=== PATIENT | female | born 1955 | race Caucasian/White ===

== ENCOUNTER 2022-02-09 18:08 | Inpatient (IN) | payer MEDICARE ==
[~2022-02-09] VITALS: Ht 157.5 cm; Wt 101.5 kg
[2022-02-09] MEDS ORDERED: LIPITOR40 MG PO (18:31)
[2022-02-09] MEDS ORDERED: ZETIA10 MG PO (18:32)
[2022-02-09] MEDS ORDERED: GABAPENTIN100 MG PO (18:32)
[2022-02-09] MEDS ORDERED: KEPPRA750 MG PO (18:33)
[2022-02-09] MEDS ORDERED: DILANTIN100 MG PO (18:34)
--- NOTE | 2022-02-10 00:37 | NUR ---
NOTIFIED DR CHAPA THAT PT NEEDS TO HAVE HER SEIZURE MEDICATION ORDERED, SHE TAKES NIGHTLY. DR WILL ORDER IV SEIZURE MEDICATIONS.
--- NOTE | 2022-02-10 00:50 | NUR ---
pt ARRIVES TO [place] FLOOR, ORIENTED TO SELF, MONTH OF BIRTHDAY ONLY. AT BEDSIDE, ASSISTING WITH ANSWERING QUESTIONS. STATES SHE IS NORMALLY CONFUSED BY DATE, USUALLY KNOWS BIRTHDAY. REORIENTED TO LOCATION, TIME, DATE. PURWICK CATHETER PLACED, INCONTINENCE NOTED IN ATTENDS. BLANCHABLE REDNESS ON TIFFANY AREA, BUTTOCKS. DENIES PAIN. IV SITE FLUSHED, PAINFUL, INFILTRATED. THREE ATTEMPTS AT NEW IV START BY THIS RN AND BUNNY ROWLAND. CERTIFIED VETERINARY TECHNICIAN RN NOTIFIED.
--- NOTE | 2022-02-10 01:35 | NUR ---
pt ASSESSMENT COMPLETE. ACTIVE BOWEL TONES THROUGHOUT ABDOMEN. ABDOMEN DISTENDEND, NON-TENDER WITH PALPATION. FBC RN IN ROOM, 1 ATTEMPT AT IV START, NO SUCCESS. NET WEB APPLICATION DEVELOPER RN IN ROOM TO ATTEMPT NEW IV START.
--- NOTE | 2022-02-10 01:56 | NUR ---
IV ATTEMPTS X 3 UNSUCCESSFUL
--- NOTE | 2022-02-10 02:30 | NUR ---
IV STARTED IN RIGHT WRIST BY IN CLASS SPECIAL EDUCATION TEACHER SENAIT. pt TOLERATED WELL. NGT PLACED PER ER ORDERS, TELEPHONE ORDER, DIFFICULT PLACEMENT. PLACED BY BUNNY ROWLAND. AUSCULTATION OF INJECTED AIR IN STOMACH WNL. NO IMMEDIATE GI SUBSTANCE RETURN. CHEST XRAY ORDERED FOR PLACEMENT VERIFICATION. IV SITE FLUSHED WNL, IV ANTIBIOTIC INFUSING ORDERED AT THIS TIME. PARACHUTE LINE TIER BUNNY KOHLER ORDERED SEIZURE MEDICATIONS.
--- NOTE | 2022-02-10 04:16 | NUR ---
IV ANTIBIOTIC COMPLETE. IV SEIZURE MEDICATIONS ADMINISTERED, INFUSING WNL. pt ASKING QUESTIONS REGARDING NGT, PLAN OF CARE. MYRA MARTINEZ FROM NGT. ADVANCED 4 CM PER XRAY. pt HAS CALL LIGHT IN REACH. NO REQUESTS AT THIS TIME.
--- NOTE | 2022-02-10 06:38 | NUR ---
IN pt ROOM FOR IV ANTIBIOTIC ADMINISTRATION. pt AWAKENS TO VOICE. IV ANTIBIOTIC INFUSING WNL. INCONTINENT OF URINE. ATTENDS CHANGED. PUREWICK IN PLACE. ASSISTED TO REPOSITION TO LEFT SIDE, PILLOW UNDER LEGS. NGT TO LOW INT SUCTION, BROWN DRAINAGE. MINIMAL OUTPUT NOTED IN COLOSTOMY BAG. CALL LIGHT IN REACH. BED IN LOW POSITION.
--- NOTE | 2022-02-10 08:00 | NUR ---
Pt lives in [facility] and is established with PCP and pharmacy. She is unable to remember providers name. Pt visiting friends in [place] and became ill. Pt is a complex case with SBO, ostomy, UTI with colonized stent, and a open wound from gallbladder drain some time ago. Pt is pleasantly confused and frequently attempting to remove her NG, she is unable to remember if she is in [place] and [place] and repeatedly states she has moved here. She is confused and then will state, no I live in [place]. is out of room and pt states he has gone to get their grandchilrend who are 8,9, and 10. She states she has lost 170 # as she needed surgery, she cannot remember what surgery. She states with covid her surgery has been cancelled. Pt plans on returning home to [place] for follow up. I expressed my concern for this as it is at least a [address] Will speak with spouse when he arrives. Will follow up with Dr. Stephens when he has further infor. He has contact ed Dr. Sims for consult.
--- NOTE | 2022-02-10 08:30 | NUR ---
PT ATTEMPTING TO PULL OUT NG TUBE SEVERAL TIMES. MUST CONTINUE TO REINFORCE NEED TO LEAVE IN PLACE. DR CHAUDHARY HAS EXPLAINED TO PT THAT DUE TO MULTIPLE COMORBIDITIES, POSSIBLE TRANSFER TO HIGHER LEVEL OF CARE MAY BE INDICATED. MAGUE DISASTER DIRECTOR ATTEMPTING TO RETRIEVE RECORDS FROM HOSPITAL ADMISSIONS IN [place] WHERE PT RESIDES. IS ALSO INITIATING INQUIRIES TO [facility] FOR TRANSFER. PT'S HAS GONE TO SEE FAMILY AT THEIR HOTEL THIS AM, BUT WILL BE BACK TO SIT WITH PT SHORTLY. WILL CONTINUE TO MONITOR PT CLOSELY SO SHE DOESN'T PULL OUT NG TUBE.
--- NOTE | 2022-02-10 08:54 | NUR ---
TRANSFER REQUEST TO [facility], PATIENT IS ON WAITLIST. [facility] IS ON DIVERT. THIS PATIENT HAS NOT BEEN SEEN AT [facility], I REQUESTED RECORDS SINCE THE WAS SURE THIS WAS THE HOSPITAL. HER PRIMARY CARE DOCTOR IS RACHEAL DEMPSEY IN [place], [place] PHONE . I WILL CALL HER TO GET MOST RECENT VISIT NOTES.
--- NOTE | 2022-02-10 09:49 | CONS ---
[facility] [address], [place] [address] Signed DATE OF CONSULTATION: CHIEF COMPLAINT: Left lower quadrant abdominal pain. HISTORY OF PRESENT ILLNESS: Heide is a 66-year-old female, who apparently weighed 400 pounds at one time. Her describes a rather significant umbilical hernia. They live in [place]. She went to [facility], who evaluated the hernia very carefully. There was concern about loss of abdominal domain. They told her they would not repair the hernia until she lost weight. She ended up at [facility] in [place], [place] back in 2018. The bowel inside the umbilical hernia had become ischemic. The surgeon had to give her a left lower quadrant colostomy at that time. Also the gallbladder apparently was bothering her and she had a drain placed at the same time. Later that drain was removed and yet the tract has never stopped draining, so she has a colostomy bag over that drain site. I am not sure if the original umbilical hernia was closed primarily. She certainly has a recurrent hernia and/or a parastomal hernia at this point. It is actually fairly large. Apparently, she has lost about 175 pounds. She is down to 102 kg. She actually maybe more than that. Later in August 2019, she had to have a left ureteral stent placed for what looks like kidney stones. This was done at [facility] also in [place], [place]. COVID and that ureteral stent is still in place. For reasons that are not clear, someone gave her antibiotics recently in the hospital for urinary tract infection but that ureteral stent has been left in place and never changed. She happens to live with her who is very helpful. She has also had a brain tumor removed, so she does have a history of seizures and she is a little confused at her baseline. They have come up from [place] to visit family. She noticed increasing pain in the left lower quadrant. They finally came to emergency room for evaluation. White count was initially 12, but it is down to 7.7. She is mildly anemic. Hemoglobin A1c is good at 5.2 from her weight loss. Renal function off just a little bit. Of course, her urine is dirty with bacteria. Urine culture is pending. Albumin is low at 2.5. She underwent a CT scan of abdomen and pelvis and her common bile duct is unremarkable. The liver is unremarkable, but I can see the chronic track from her gallbladder up to the abdominal wall. There is clearly a left ureteral stent and probable cholelithiasis. She has some stones still in her kidneys. She clearly has the left lower quadrant parastomal hernia with what appears to be a small bowel obstruction. Her bladder is chronically thickened as well as the left renal pelvis. The left kidney is atrophic and I suspect that is chronic from obstruction in the past. Unfortunately, none of this complexity was relayed to me in the middle of the night by our ER physician. I had been asked to admit her as a general surgeon on-call. She was started on Levaquin and Flagyl last night. It took several hours to start peripheral IV. The tells me she had a PICC line a few weeks ago while in [place]. Also because of her baseline confusion, she is pulling at her NG tube. It was also difficult to place an NG tube but it was confirmed in the stomach by x-ray. Not much out in the way of bilious fluid at this point. The relayed all this complexity to me this Electronically Signed By: FRANCISCO STEPHENS MD 02/10/22 0949 PATIENT NAME: HEIDE KAY CONSULTATION DATE OF : 55 REPORT #: [id number] PHYSICIAN: FRANCISCO STEPHENS MD PCP: NO PRIMARY CARE PHYSICIAN REPORT IS CONFIDENTIAL AND NOT TO BE RELEASED WITHOUT AUTHORIZATION [facility] [address], [place] [address] Signed morning. They are really hoping that they can get her to somewhat stable and they can head back down to [place] to be around her family and the hospitals and physicians that they are familiar with. PAST MEDICAL HISTORY: Urinary tract infection with a chronic left ureteral stent placed in August 2019. She has kidney stones, cholelithiasis, parastomal hernia, brain tumor with seizures and stage I sacral pressure injury and diverticulosis. PAST SURGICAL HISTORY: Includes the incarcerated umbilical hernia with ischemic bowel requiring resection and colostomy in 2019 at [facility] in [place], [place]. She had the gallbladder drain placed at [facility] in [place], [place] in 2019. That has since been removed. She had a brain tumor removed. She has the left ureteral stent in August 2019 apparently at [facility] in [place]. SOCIAL HISTORY: She does not smoke. She has an occasional alcoholic drink. They live in [place], [place]. Her is Gab at [phone]. We did not obtain the name of the primary care provider. They apparently have [facility] near their home. FAMILY HISTORY: None. REVIEW OF SYSTEMS: She had 10 systems reviewed and that is relayed in the history of present illness. ALLERGIES: Sulfa, tazobactam, and Zosyn. MEDICATIONS: 1. Atorvastatin. 2. Zetia. 3. Gabapentin. 4. Keppra. 5. Phenytoin. PHYSICAL EXAMINATION: VITAL SIGNS: Blood pressure 133/73, heart rate 65, respiratory rate 16, temperature is 97.5, she is 99% on room air. The NG tube has about 150 mL of bilious fluid. She is 5 feet 2 inches and 102 kg, but apparently was 400 pounds in the past. GENERAL: Heide is a 66-year-old female, lying supine in her hospital bed. She looks Electronically Signed By: FRANCISCO STEPHENS MD 02/10/22 0949 PATIENT NAME: HEIDE KAY CONSULTATION DATE OF : 55 REPORT #: [id number] PHYSICIAN: FRANCISCO STEPHENS MD PCP: NO PRIMARY CARE PHYSICIAN REPORT IS CONFIDENTIAL AND NOT TO BE RELEASED WITHOUT AUTHORIZATION [facility] [address], [place] [address] Signed slightly older than her stated age. She obviously is kind of chronically ill and low functional status. Her Gab is at the bedside. He is very helpful. LUNGS: Clear to auscultation bilaterally. HEART: Regular rate and rhythm without murmurs. ABDOMEN: Obese, but soft. She clearly has a colostomy bag in the right upper quadrant as well as the left lower quadrant of her abdomen. There is a little bit of air in the bag in the left lower quadrant. Fortunately, the hernia around the stoma is soft and nontender at this point. LABORATORY DATA: Her white blood count was 12, it is now 7.70. Her hemoglobin was , it is now 10, neutrophils 69. Her sodium was 135, BUN was 20, creatinine was 1.2, it is down to 1.14. The glucose was 145 with a hemoglobin A1c of 5.2. Magnesium is on the low side at 1.8. AST and ALT are negative, of course the alkaline phosphatase is up a little bit at 127, albumin is low at 2.5. Urinalysis showed nitrites, leukocyte esterase, the white blood cells, the bacteria and the urine culture is pending. COVID is negative. RADIOGRAPHIC STUDIES: Chest x-ray was done and confirms the position of the NG tube without much in the way of her lungs. CT scan of the abdomen and pelvis was reviewed and she has mild cardiomegaly. The common bile duct is unremarkable. The liver is unremarkable. I can see the stranding from the gallbladder up to the abdominal wall with the bag on top of it. She probably has some cholelithiasis and she has chronic thickening to that gallbladder wall. She clearly has a left ureteral stent. She has several stones in her kidneys. The left kidney is atrophic with some inflammation in the renal pelvis and into the urinary bladder. She has a very large left parastomal hernia with what appears to be a small bowel obstruction as the small bowel is exiting. ASSESSMENT AND PLAN: Heide is a 66-year-old female, who presents as above and is quite complex. Her main issue currently would probably be a small bowel obstruction with left lower quadrant parastomal hernia. She also has a left ureteral stent from 2020 with ongoing colonization and her urinary tract infection. She also has a chronically inflamed gallbladder with what appears to be gallstones as well. She has lost an enormous amount of weight and probably is at a point that she could probably address all these issues at a large tertiary referral center. It would be very difficult for us to address all these at our small 25-bed critical access hospital. Particularly we have one urologist who may or may not be available to help us. In addition, Heide and her are hoping they can get back down to [place] to her family and the hospitals that they are comfortable and familiar with. In the meantime, we are going to treat her conservatively and we will contact our hospitalist service. They have expressed understanding and agreed with the above plan. Electronically Signed By: FRANCISCO STEPHENS MD 02/10/22 0949 PATIENT NAME: HEIDE KAY CONSULTATION DATE OF : 55 REPORT #: [id number] PHYSICIAN: FRANCISCO STEPHENS MD PCP: NO PRIMARY CARE PHYSICIAN REPORT IS CONFIDENTIAL AND NOT TO BE RELEASED WITHOUT AUTHORIZATION [address] [address] Signed Francisco Stephens MD ALB/MODL /[id number] cc: Francisco Stephens MD [facility] in [facility] Copies: FRANCISCO STEPHENS MD ~ Electronically Signed By: FRANCISCO STEPHENS MD 02/10/22 0949 PATIENT NAME: HEIDE KAY CONSULTATION DATE OF : 55 REPORT #: [id number] PHYSICIAN: FRANCISCO STEPHENS MD PCP: NO PRIMARY CARE PHYSICIAN REPORT IS CONFIDENTIAL AND NOT TO BE RELEASED WITHOUT AUTHORIZATION
--- NOTE | 2022-02-10 10:23 | NUR ---
PT REPOSITIONED IN BED. PUREWICK IN PLACE, NO LEAKING NOTED, SET TO SUCTION AT APPROX 60. NG TUBE REMAINS IN PLACE, LOW INTERMITTENT SUCTION. CONSISTENT LOREDO/BROWN/MUCOUSY DRAINAGE. NG ATTATCHED TO GOWN, PT ENCOURAGED NOT TO PULL ON OR TRY TO REMOVE. WHILE ADMINISTERING MEDS, PT REPORTS SHE SEES A SPIDER ON THE WALL ABOVE THIS RN. NO SPIDER NOTED TO BE ON WALL. PT'S REPORTS PT HAS HX OF VISUAL HALLUCINATIONS WHEN IN HOSPITAL AND "ON ANTIBITOICS". OFFERRED TO TURN ON TV FOR PT, BUT SHE DECLINED AT THIS TIME, STATING SHE WILL BE TAKING A NAP. CALL LIGHT WITHIN REACH.
[2022-02-10] MEDS ORDERED: ROSUVASTATIN CA40 MG PO (10:56)
[2022-02-10] MEDS ORDERED: LEVETIRACETAM750 M1 PO (10:57)
--- NOTE | 2022-02-10 11:31 | NUR ---
Report received from Diana HOLLIS. In to assess patient, linens changed, purewick catheter changed, jl care complete. Allevyn placed to pinprick open area on coccyx to prevent further breakdown. NGT in place. Ostomy and gallbladder drain WNL. Pt cooperative with care, at bedside.
--- NOTE | 2022-02-10 13:16 | NUR ---
PT ALERT, RESTING IN BED WITH DARLENE AT BS. PT IS PLEASANT, DARLENE EXPRESSED A NEED TO GET MORE INFO ON CARE PLAN FOR THE DAY INFORMED RN PAKO, SHE WILL FOLLOW UP. GAVE DIRECTIONS TO CAFETERIA TO DARLENE. ENCOURAGEMENT AND BLESSING GIVEN. PT FEELS WELL CARED FOR. WILL FOLLOW
--- NOTE | 2022-02-10 14:11 | NUR ---
PICC INSERTION NOTE: ASKED BY DR. CHAUDHARY TO EVAL PATIENT FOR POTENTIAL PICC LINE PLACEMENT. PATIENT WAS REPORTEDLY POKED OVER 10 TIMES LAST NIGHT FOR IV ACCESS, WHICH WAS VERY DIFFICULT TO OBTAIN. AFTER REVIEWING THE CHART, NO ABSOLUTE CONTRAINDICATIONS WERE IDENTIFIED. PATIENT AND HER DARLENE WHERE THEN INTERVIEWED. PATIENT HAD LOTS OF QUESTIONS REGARDING HER NG TUBE, AND THIS RN ATTEMPTING TO ANSWER QUESTIONS BEST POSSIBLE, AND DIRECTING CONVERSATION TOWARDS OBTAINING HER PICC LINE. PATIENT AND FAMILIAR WITH PICC LINES, AND STATES THAT PATIENT HAS HAD MANY IN THE PAST, WITH THE MOST RECENT BEING 2 WEEKS AGO IN [place], WHEN SHE WAS D/C FROM A HOSPTIAL FOR A BLADDER INFECTION. RISK AND BENEFITS WERE DISCUSSED, AND PATIENT GIVES CONSENT BUT ASKED HER TO SIGN CONSENT FORM, WHICH HE DID. PT ABLE TO STATE HER NAME, BUT UNABLE TO ACCURATELY STATE HER CORRECTLY WHEN ASKED. PT WAS AGREEABLE TO PICC LINE THOUGH. RIGHT ARM WAS EVALUATED FIRST USING THE SITE RITE U/S. PT'S VEINS WERE HARD TO FIND INITIALLY, SHE HAS A VERY LARGE ARM WITH EXCESS TISSUE. PT'S BASILIC WAS IDENTIFIED, BUT TOO SMALL TO BE SUITABLE FOR A 4FR PICC, AND THE SAME WITH THE CEPHALIC VEIN. THE BRACHIAL WAS ASSESSED AND FOUND TO BE SUITABLE, WITH A 4FR ESTIMATED TO TAKE UP 38% OF THE VEIN DIAMTER WITHOUT A TOURNIQUET. OF NOTE, THIS VEIN WAS 2 CM DEEP TO THE TOP OF VEIN. LEFT ARM WAS ALSO EVALUATED AND EVEN SMALLER VEINS WERE VISUALIZED, WITH NO VEIN FOUND TO ACCEPTABLE FOR THIS PROCEDURE TODAY. THEREFORE THE RIGHT ARM WAS CHOSEN THE SUITABLE CANDIDATE. PATIENT'S ARM WAS THEN STERILY CLEANED AND DRAPED FOLLOWING CDC GUIDELINES FOR STERILE PROCEDURE. PT'S HAD STEPPED OUT OF ROOM SINCE WE STARTED LOOKING WITH U/S, BUT STATED HE WOULD RETURN. AFTER ARM WAS PREPPED AND READY, THE SKIN WAS NUMBED USING 1% LIDOCAINE. PT TOLERATED THIS WELL. ACCESS INTO THE VEIN WAS OBTAINED, BUT NOT EASY. DARK, BRISK NON PULSATILE BLOOD WAS RETURNED FROM NEEDLE, AND THE GUIDEWIRE WAS THEN ADVANCED EASILY. PT WAS TOLERATING THIS WITH REASSURANCE, BUT STARTING TO SAY THINGS LIKE, "YOU'RE DONE." EXPLAINED TO PATIENT THAT WE WERE ALMOST DONE WITH PROCEDURE, AND ADVANCING PICC INTO VEIN WAS THE NEXT STEP. PT HAD SHERLOCK MAGNET ON CHEST TO WATCH FOR TIP ADVANCEMENT. INTRODUCER WAS ADVANCED OVER THE GUIDEWIRE FAIRLY EASILY. DURING ADVANCEMENT OF PICC LINE AND WATCHING FOR TIP ADVANCEMENT INTO CHEST, PATIENT STARTED TO PULL MAGNET OFF OF CHEST. PT WAS STARTING TO NOT FOLLOW DIRECTIONS WELL. I WAS ABLE TO REPLACE MAGNET ON NESTOR'S CHEST WITHOUT TOUCHING IT AND ASKED PATIENT TO LEAVE HER ARM UNDER THE STERILE DRAPE. FURTHER ADVANCEMENT WAS ACHIEVED AND PICC WAS IN A SATISFACTORY PLACE, AND PATIENT STARTED TO PULL RIGHT ARM UP, AND PULLED MAGNET COMPLETELY OFF CHEST AND OUT OF PLACE. PATIENT WAS SAYING TO THIS RN, "YOU'RE DONE. STOP TOUCHING ME. YOU'RE DONE. I'M GOING TO LEVEL YOU. YOU DON'T KNOW WHAT YOU'RE DOING. STOP DOING THAT." MEANWHILE, HELP WAS CALLED FOR USING CALL LIGHT AND PATIENT'S WAS REQUESTED TO RETURN TO ROOM. PATIENT ONLY CONTINUED TO BECOME MORE AND MORE AGITATED, AND STARTED TO CUSS AND THREATEN TO HIT THIS RN, WELL ANOTHER RN WHO CAME IN TO HELP. EXPLAINED TO PATIENT MULTIPEL TIMES THAT THE PICC LINE WAS IN PLACE, BUT A FINAL STERIL DRESSING WAS NEEDED TO BE PLACED. PT ADAMENTLY REFUSING TO ALLOW THIS RN TO PLACE DRESSING ON. INTRODUCER WAS STILL OVER THE PICC LINE. PT'S IN ROOM AFTER SEVERAL MINUTES AND ATTEMPTING TO CALM PATIENT. PT'S RN HELPING TO HOLD RIGHT ARM SECURELY SO A STERILE DRESSING COULD BE PLACED OVER PICC SITE. ULTIMATELY, INNER WIRE WAS REMOVED, TWO STERILE CLAVES PLACED OVER ENDS AND STERILE DRRESSING WAS PLACED OVER PICC. PICC WAS THEN WRAPPED WITH COBAN. CHEST XRAY STILL NEEDING TO BE COMPLETED. PT'S RN WAS DISCUSSING WITH DR. CHAUDHARY SOMETHING TO HELP PATIENT CALM DOWN. INSTRUCTIONS WERE GIVEN TO RN TO NOT USE PICC LINE UNTIL WE CAN VERIFY PLACEMENT. PT STILL HAS IV IN RIGHT WRIST THAT IS WORKING. WILL ALLOW PATIENT SOME TIME TO CALM DOWN AND WILL REEVALUATE GETTING CHEST XRAY.
[2022-02-10] MEDS ORDERED: PROBIOTIC1 EAC1 PO (14:22)
--- NOTE | 2022-02-10 14:22 | NUR ---
MED REC COMPLETE
--- NOTE | 2022-02-10 14:30 | NUR ---
RN Helena to insert PICC line. Call light answered and this RN finds Helena in room with pt grasping hands and yelling to "get out, back away." Helena Rn assisted to hold patient's hands as sterile field open, PICC line not secured. Attempted to restrain pt for safety and she becomes violent, combative and verbally aggressive, using inappropriate language and calling these 2 RN's "bitches". Pt's to bedside to assist calming pt. sheet metal production worker and Dr Stephens and Dr Brown aware. 1mg ativan order received and given to patient who is very outwardly suspicious of medical staff. Attempted to redirect and communicate with patient who states "you are disingenuous and trying to hurt me". Pt's states that patient frequently requires anti anxiety medications when enduring medical procedures and gives agreement for the IV Ativan dose. Pt allowed to rest with at bedside with bed alarm on, after PICC line safely secured. Bed rails up for safety.
--- NOTE | 2022-02-10 15:00 | NUR ---
Rounded on patient who is now resting in bed with eyes closed. Pt continues to be suspicious of medical staff but is no longer physically combative. Pt allows chest X ray to be completed. at bedside.
--- NOTE | 2022-02-10 15:15 | NUR ---
Received confirmation that PICC line is verified for use. Pt connected to IV ABX and scheduled medications. No combativeness or verbal offense. Pt is resting in bed with eyes closed, even and unlabored respirations, awakens to this RN adjusting IV line and she states "what are you doing?" explained cares and she nods her head. provided with coffee.
--- NOTE | 2022-02-10 15:30 | NUR ---
Pt resting in bed. Eyes closed, open spontaneously, states no needs. Pt RR even and unlabored.
--- NOTE | 2022-02-10 15:31 | NUR ---
I HAVE SPENT A LOT OF MY DAY TRYING TO OBTAIN MEDICAL RECORDS ON THIS PATIENT. THE WAS SURE THAT SHE WAS ADMITTED TO [facility], I REQUESTED RECORDS FROM THEM, THEY HAVE NEVER SEEN THIS PATIENT. I WAS ABLE TO RECEIVE RECORDS FROM HER PRIMARY CARE DOCTOR RACHEAL DEMPSEY. [facility] WILL BE SENDING RECORDS. AFTER THREE HOURS OF WAITING FOR THE RECORDS I CALLED THEM BACK. THEY WILL GET THEM SENT.
--- NOTE | 2022-02-10 15:50 | EKG ---
[facility] [address] [facility] [place] [address] Signed Normal sinus rhythm Low voltage QRS Nonspecific ST and T wave abnormality Abnormal ECG No previous ECGs available Confirmed by FREEMAN EWEKS MD ([id number]) on 02/10/2022 3:50:28 PM Electronically Signed By: FREEMAN WEEKS MD 02/10/22 1550 PATIENT NAME: CRISTAL KAY Electrocardiogram DATE OF : 55 PHYSICIAN: FREEMAN WEEKS MD REPORT #: [id number] REPORT IS CONFIDENTIAL AND NOT TO BE RELEASED WITHOUT AUTHORIZATION
--- NOTE | 2022-02-10 16:20 | NUR ---
CALLED [facility] FOR AN UPDATE, SPOKE WITH DR MUKESH COTTON, HE SAID THE PATIENT IS ON THE WAITLIST AND THERE IS ABOUT FIVE PATIENTS AHEAD OF HER.
--- NOTE | 2022-02-10 19:32 | NUR ---
REPORT RECEIVED FROM BUNNY MIN. pt RESTING IN BED WITH EYES CLOSED. NGT TO LOW INT SUCTION. IVF INFUSING PICC LINE. CALL LIGHT IN REACH.
--- NOTE | 2022-02-10 21:33 | NUR ---
pt AWAKE WHEN RN ENTERS ROOM. INCONTINENCE ON ENTIRE BED NOTED, UP BEHIND BACK. ATTENDS CHANGED. PUREPICK REPLACED AND FUNCTIONING TO SUCTION. ASSISTED TO REPOSITION IN BED. NGT TO LOW INT SUCTION, GREEN OUTPUT. PICC LINE FLUSHED WNL, BRISK BLOOD RETURN. IV MEDICATIONS INFUSING BOTH LUMENS AT THIS TIME. PIV INFILTRATED, D/C'D WNL. pt IS ORIENTED TO PERSON, ONLY. REORIENTATION PROVIDED. IN ROOM. CALL LIGHT IN REACH.
--- NOTE | 2022-02-10 22:03 | NUR ---
IV PUMP ALARMING, IV ANTIBIOTIC COMPLETE. IV KEPPRA NOW INFUSING PER DRUG BOOK RECOMMENDATIONS. pt SLEEPING, EYES CLOSED, BREATHING UNALBORED. HOB ELEVATED, NGT TO LOW INT SUCTION. CALL LIGHT WITHIN REACH.
--- NOTE | 2022-02-10 23:20 | NUR ---
pt CALLING OUT. pt WITH LEGS OVER SIDE RAILS. STATES WANTS TO TALK TO , DOES NOT RESPOND, SLEEPING ON COUCH. ALLOWED TO REST. pt INCONTINENT OF URINE IN ATTENDS. PUREWICK TO SUCTION. IVF INFUSING PICC LINE, SECOND LUMEN SL WNL. ASSISTED TO REPOSITION IN BED, PILLOWS UNDER LEGS, UNDER RIGHT SIDE. CALL LIGHT IN REACH. BED ALARM ON.
--- NOTE | 2022-02-11 00:04 | NUR ---
CHECKED ON pt. RESTING IN BED WITH EYES CLOSED. BREATHING EQUAL AND UNLABORED. HOB ELEVATED [address] TO LOW INT SUCTION. BED ALARM ON.
--- NOTE | 2022-02-11 01:29 | NUR ---
CHECKED ON pt. RESTING IN BED WITH EYES CLOSED. BREATHING UNLABORED, SNORING. NGT IN PLACE. IVF INFUSING PICC LINE. NO DISTRESS NOTED. BED ALARM ON.
--- NOTE | 2022-02-11 02:54 | NUR ---
CHECKED ON pt. SHIFTED TO LEFT SIDE, BREATHING EQUAL AND UNLABORED, EYES CLOSED. NGT TO LOW INT SUCTION.
--- NOTE | 2022-02-11 04:16 | NUR ---
IV PUMP ALARMING, DISTAL OCCLUSION, pt MOVING ARM, SCRATCHING NOSE AT TAPE. pt REMINDED OF NGT, TO LEAVE TAPE IN PLACE. pt STATES "OH YEAH". DENIES NEEDS. NGT TO LOW INT SUCTION. CALL LIGHT IN REACH. IVF INFUSING WNL.
--- NOTE | 2022-02-11 06:04 | NUR ---
LABS DRAWN FROM PICC LINE, 10 MLS BLOOD WASTED. pt AWAKE, ALERT, ORIENTED TO SELF ONLY. COOPERATIVE WITH CARES. ASSESSMENT COMPLETE. PUREWICK CHANGED, INCONTINENCE OF URINE IN ATTENDS, ATTENDS CHANGED. VSS. NGT TO LOW INT SUCTION. IV ANTIBIOTIC INFUSING PICC LINE WNL. REPOSITIONED TO FLOATING ON PILLOWS. CALL LIGHT IN REACH. BED ALARM ON.
--- NOTE | 2022-02-11 08:00 | NUR ---
Discussed this pt with Jaz, Med/surg amusement centre manager. Pt is wanting to get closer to home for treatment as she is complex and cannot have surgery here. Pt will require a higher level of care than we can provide. It is unclear to Jaz and I if pt can be [facility] to [place] or has to go to the nearest hospital that can accept and provide her care. Erwin from [facility] here this am was able to answer our questions and pt would need to go to the nearest accepting hospital. If there is no one to accept her then they could flight her to an accepting hospital in [place]. I was then able to speak with Nava, she has been calling transfer centers and Pt has been accepted by [facility] and is on their wait list. They feel they can accept this pt in approx. [address] Alejandro Duke. I will discuss this with pts as pt is frequently sleeping.
--- NOTE | 2022-02-11 08:15 | NUR ---
REPORT RECEIVED FROM NIGHT RN AND PT CARE RESUMED. PUREWICK AND BOWEL OSTOMY BOTH LEAKING. BEDDING, PUREWICK AND OSTOMY APPLIANCE CHANGED. PICC LINE DRESSING SATURATED WITH BLOOD. PICC LINE NURSE SPOKEN WITH AND ADVISED CHANGING DRESSING, THEN APPLYING COBAND. DRESSING CHANGED USING STERILE TECHNIQUE. NG TUBE CANISTER FULL AND CHANGED. ASSESSMENT COMPLETED. PT. LEFT RESTING WITH AT BEDSIDE.
--- NOTE | 2022-02-11 08:35 | NUR ---
FAXED A RECORDS REQUEST TO [facility].
--- NOTE | 2022-02-11 09:50 | NUR ---
Spoke with pts spouse. Discussed where he would like his to go. He still would like to have pt transferred to [place]. Updated on info from [facility] and pt has been accepted and placed on a waitlist for for [facility]. Spouse wanting to know if there is any chanc+e they could just drive as it will be 2 days home or 2 days to a higher level of care. I then discussed 'faraz and myself do not feel this would be medically safe. It is their right to do so, but we do not recommend this. Pt will remain under the care of hospital staff while she is hospitalized. We discussed if family have the money to pay out of pocket for flight to [place]. and he denies. We then discussed signing up online for [facility] ground/[facility] as pt will need to go either by ground or flight and this will save them a tremendous amount of money. Jaz assisted spouse to complete application on line. Spouse now stating he will accept placement for to [place]. Pt has slept throughout our entire conversation. Will cont. to work with this family for safe transfer to a higher level of care.
--- NOTE | 2022-02-11 10:50 | NUR ---
THIS RN TO ROOM TO ASSIST PTS PRIMARY RN. PTS GOWN CHANGED. PT REQUESTS A CEPACOL THROAT LOZANGE. DR WEEKS CONSULTED AND STATES OK TO ORDER. ORDER PLACED. PT DENIES ADDITIONAL REQUESTS OR COMPLAINTS. CASE MANAGEMENT TO BEDSIDE TO VISIT WITH PT AND FAMILY. NO ADDITIONAL NEEDS AT THIS TIME. CALL LIGHT WITHIN REACH. BED RAILS UP.
--- NOTE | 2022-02-11 14:00 | NUR ---
TOOK PATIENTS VITALS. ALL WITHIN NORMAL RANGE. ASSISTED NURSE MARCELL IN ATTEND CHANGE. PATIENT IS RESTING IN BED. GRANDSON IN ROOM. CALL LIGHT IN REACH.
--- NOTE | 2022-02-11 14:07 | NUR ---
PT. C/O SORE THROAT. ADMIN CEPACOL LOZENGE. ASSISTED BY 2 STAFF WITH CHANGING BRIEF THAT IS SLIGHTLY DAMP. PUREWICK IN PLACE. IV ABX STARTED. PT. DENIES FURTHER NEEDS. ASSESSMENT COMPLETED. AT BEDSIDE AND BED ALARM ON
--- NOTE | 2022-02-11 15:30 | NUR ---
Update from Dr. Stephens, pt remains on waitlist for [facility].
--- NOTE | 2022-02-11 18:28 | NUR ---
BRIEF SATURATED AND CHANGED BY TWO NURSES. PT DENIES PAIN. ASSISTED WITH REPOSITIONING. LEFT RESTING WITH HOB ELEVATED AND CALL LIGHT IN REACH.
--- NOTE | 2022-02-11 20:45 | NUR ---
ON ROOM AIR, L NG TO LIWS DRAINING GREEN COLORED THICK DRAINAGE, PATENT. AWAKE, ALERT AND ORIENTED, RUPPER ABD STOMA SITE WITH SCANT AMOUNT OD DRAINGAE. R LOW ABD STOMA WITH NO DRAINAGE AT THIST PILLO, RAISED AREA AROUND STOMA, RARE ABD TOMES. INCONTINETN OF URINE, ATTENDS CHANGED EARLIER. COOPERATIVE, EDEMA TO LE 2+ ELEVATED, NPO, DOES OWN ORAL CARE, IVF INFUSING PICC LINE MATTY, PATENT. IN ROOM
--- NOTE | 2022-02-12 01:51 | NUR ---
Pt resting, eyes closed, on room air, R nare NGT to LIWS draining green colored thick drainage. no c/o pain or n/v. 2 stoma bags no drainage. was incontinent of urine, changed, skin care, allevyn to R upper buttocks cooperative, bruising arms w/o changes. edema to LE same, elevated, MATTY PICC line patent, NPO, does own mouth care, cooperative, follows instructions. call light at hands reach, family member rooming in
--- NOTE | 2022-02-12 03:52 | NUR ---
RESTING, NGT PATENT TO PADMA, IVF INFUSING PICC LINE MATTY. NO DISTRESS, TURNS AND REPOSTIONS SELF IN BED, FAMILY ROOMING IN
--- NOTE | 2022-02-12 05:05 | NUR ---
IN TO ASSIST RN WITH VITALS, PT INCONT OF URINE, BOOSTED, NO FURTHER NEEDS AT THIS TIME
--- NOTE | 2022-02-12 05:32 | NUR ---
pt on room air, R nare NGT to LIWS draining small amount green colored thick drainage, hob elevated, abd soft, tender, rare bowel tones r side, very faint left side, low r abd stoma no drainage this shift, increased elevation of hernia around stoma noted. r upper alison/drainag stoma with 25cc clear/pinkish drainage. incontinent of urine. redness arouns under pannus bilat present. Allevyn to R buttocks area inplace. edema to hands and le present, helped with turning and repositioning.MATTY PICC line patent, no c/o adverse reaction to IV abx and seizure meds, no seizure this shift. No c/o n/v or pain NPO, does own oral care. pleasant alert, oriented and cooperative. waiting for transfer to higher level of care. uses call light, call light at hands reach. in room
--- NOTE | 2022-02-12 07:30 | NUR ---
REPORT RECEIVED FROM RN AND PT CARE RESUMED. PT. IS RESTING WITH EYES CLOSED DURING REPORT.
--- NOTE | 2022-02-12 08:30 | NUR ---
PT. IS ALERT AND ORIENTED TO ALL BUT DATE. SHE REPORTS PAIN IN ABDOMEN AROUND OSTOMY. ABDOMEN IS SOFT BUT BULGING AROUND OSTOMY. BOWEL TONES RARE. NG TUBE ATTACHED TO LOW INT. SUCTION AND DRAINING BROWN LIQUID. OSTOMY APPLIANCES INTACT AND DRY. ATTENDS CHANGED BY CNAS. PT. ASSISTED BY 2 STAFF AND FWW TO WHEELCHAIR FOR XRAY. PT. ABLE TO TAKE A COUPLE STEPS.
--- NOTE | 2022-02-12 08:41 | NUR ---
CALLED THE TRANSFER CENTER FOR AN UPDATE, STILL ON THE WAITLIST. THEY WILL BE CALLING BACK WITHIN A FEW HOURS WITH AN UPDATE.
--- NOTE | 2022-02-12 09:00 | NUR ---
COMPUTER LAB PARA PROFESSIONAL BROUGHT BACK PT. DUE TO WEAKNESS SHE WAS UNABLE TO TRANSFER TO TABLE. PT. HOYERED TO BED AND TAKEN BACK TO XRAY. PRIOR TO LEAVING PT. ADMIN PAIN MED AND ATTENDS CHANGED.
--- NOTE | 2022-02-12 09:48 | NUR ---
PT. IS IN IMAGING THIS MORNING AND UNABLE TO PASS MEDS UNTIL SHE RETURNS.
--- NOTE | 2022-02-12 10:18 | NUR ---
THIS CNA2 LOCATED AN OPEN SORE UNDER PT PANIS ASSOCIATED W/REDNESS AND PAIN. REPORTED TO RN. PT IS NOW OOU.
--- NOTE | 2022-02-12 11:27 | NUR ---
pt. has not received morning meds due to being at imaging. pharmacy called and pharmacist states meds do not need to be retimed.
--- NOTE | 2022-02-12 11:51 | NUR ---
PT. ADMIN SEIZURE MED AND ABX WHILE IN IMAGING DEPARTMENT. SHE SEEMS CONFUSED AND DID NOT RECOGNIZE THIS NURSE. PT. PULLING AT NG TUBE. PT REORIENTED AND NG TUBE ASSESSED TO BE IN THE CORRECT PLACEMENT. FILTER WASHER AND PRESSER SPOKEN TO AND WILL MONITOR PT.
--- NOTE | 2022-02-12 13:21 | NUR ---
PHARMACY CONTACTED REGARDING PT. BEING IN IMAGING SINCE 829. PHARMACY STATES IT IS FINE TO GIVE OVERDUE MEDS AND NOT HOLDING.
--- NOTE | 2022-02-12 15:00 | NUR ---
PT. RETURNED FROM IMAGING FOR A SHORT TIME BEFORE NEXT IMAGING SCHEDULED. PT. OSTOMY LEAKING BROWN STOOL. AFTER EMPTYING, BAG STARTED RAPIDLY FILLING WITH WHITE/GREEN DRAINAGE. IMAGING CALLED AND TAKING BACK EARLY TO VIEW CONTRAST MOVEMENT. PT. ATTENDS CHANGED AND BARRIER CREAM APPLIED TO REDDENED TIFFANY-AREA. AREA UNDER PANNUS HAS SUPERFICIAL OPEN WOUNDS OF SKIN BREAK DOWN. DRIED, BARRIER CREAM APPLIED AND PILLOW CASE IN PLACE. ASSESSMENT COMPLETED AND PT. GIVEN PAIN MEDS FOR ABDOMINAL PAIN.
--- NOTE | 2022-02-12 16:06 | NUR ---
CALLED [facility], THERE ARE FOUR PATIENTS IN FRONT OF HER.
--- NOTE | 2022-02-12 16:24 | NUR ---
Cont. to await transfer to [facility].
--- NOTE | 2022-02-12 16:31 | NUR ---
PT RETURNED TO ROOM FROM IMAGING SO THIS CNA2 ALONG W/SOYBEAN SPECIALTIES COOK FELIZ ASSISTED PT W/PARTIAL BED BATH/COLOSTOMY CARE. COLOSTOMY EMPITED, FRONT OF PT WIPED DOWN, TIFFANY CARE, BARRIER CREAM APPLIED DUE TO REDNESS, PILLOW CASE UNDER PANIS AFTER CLEANING DUE TO BREAK DOWN (RN NOTIFIED OF REDNESS). PT RETURNED TO IMAGING AFTER NEW COLOSTOMY BAG/BATH.
--- NOTE | 2022-02-12 18:28 | NUR ---
PT. RLQ OSTOMY LEAKING AND CHANGED TWICE TODAY. LUQ OSTOMY FOR GALLBLADDER ALSO LEAKING AND APPLIANCE CHANGED. PT. IS CONFUSED AT TIMES AND ORIENTED TO SELF AT THIS TIME. WILL CONTINUE MONTITOR.
--- NOTE | 2022-02-12 19:30 | NUR ---
AWAKE, ON ROOM AIR, NGT IN PLACE, IVF INFUSING W/O PROBLEMS MATTY. NO C/O PAIN
--- NOTE | 2022-02-12 21:30 | NUR ---
IN TO ASSIST RN WITH CARES, VS DONE, PT INCONT, BOOSTED
--- NOTE | 2022-02-12 22:12 | NUR ---
don room air, R nare NGT patent to LIWS, draining white discharge probaly gastrographin. lungs clear dim at bases, abd large edematous and raised at stoma site. R upper abd alison drain stoma bag with bluish scant amount of drainage. R lower abd stoma with small amount of semiliquid bm, yellow colored, bag drained. c/o tenderness abd. julito bowel tones present, dim on R side, more active in Left and lower. denies passing gas. incontinent of urine, skin care done. red areas under pannus and buttocks, allevyn to R buttocks. barrier skin lotion applied liberally, skinc are and clean attends done. repositioned in bed, cooperative. edema to ankles 2+. pt alert, answered appropriately, NPO did own oral care. MATTY PICC line patent. infusing IVF, abx and seizure med IV. denies s/sx seizure activity , was medicated with DIlaudid 1mg IV per abd pain 8/10, and prior to repositioning. hob elevated , aspiration and fall precautions inplace, bed alrm on. call light andoral sponges at bedside. family in room.
--- NOTE | 2022-02-12 23:58 | NUR ---
HOB ELEVATED, NGT PATENT TO LIWS, DRAINING WHITE DRAINAGE VERY SLUGGISH, FLUSEHD AGAIN, PROCEDURE EXPLAINED, COOPERATIVE. SCRATCHING AT NARES. NASAL PAD WAS REPLACED EARLIER, OFF AT THIS TIME. REPLACED TO PREVENT ACCIDENTAL PULLING OF NGT, EXPLAINED TO PT. SARAH UNDERSTANDING. IN ROOM AWARE. IVF INFUSING W/O PROBLEMS. POSITIONAL. ATTENDS DRY. STOMA INTACT. PT DOES OWN ORAL CARE. NO FURTHER C/O PAIN. LE ELEVATED
--- NOTE | 2022-02-13 03:11 | NUR ---
hob elevated, resting, eyes closed, NGT patent to PADMA, ivf infusing w/o problems
--- NOTE | 2022-02-13 05:31 | NUR ---
Pt on room air, lungs dim at bases, R nare NGT to LIWS was flusehd twice during this shift. suctioning gastrographin from abd, pt had MRI yesterday. c/o tender abd, was medicated with Dilaudid, effective, abd large R upper abd alison drainage stoma like draining small amounts of clear colored drainage. R lower abd stoma patent. draining liquid bm. ALEXANDRE, abd soft, raised areas around stoma appears more enlarged than yesterday. tender to touch. incontinent of urine, attends changed, red areas under pannus and buttocks, allevyn to R buttocks inplace. barrier skin cream applied. pt helps with turning and repositioning. moves legs, generalized edema, 2+ ankles and feet, heel protecotrs at bedside at this time. MATTY PICC line patent. IVF infusing w/o problems. NPO, does own mouth care. forgetful , mild confusion at times, easily reoriented. in room
--- NOTE | 2022-02-13 06:34 | NUR ---
hob elevated, NGT patent to LIWS, flushed again, tolerated well, abd soft more distended around lower stoma, stoma bag changed, leaking. c/o more tnderness at lower abd below stoma area. cooperative, Incontinent of urine attends changed, white vag discharge noted, redness to jl area nd buttocks, barrier cream applied. cooperative. Dr Stephens notified.
--- NOTE | 2022-02-13 07:30 | NUR ---
REPORT RECEIVED FROM NIGHT RN AND PT. CARE RESUMED. IV PUMP BEEPING AND PICC ASSESSED THEN RESTARTED IVF. PT. DENIES FURTHER NEEDS LEFT RESTING WITH CALL LIGHT IN REACH.
--- NOTE | 2022-02-13 08:00 | NUR ---
PT. IS ALERT AND ORIENTED TO SELF. SHE C/O GENERAL ACHES THAT ARE MILD AND REFUSES PAIN MEDS. ATTENDS SATURATED AND PT WAS CLEANED, BARRIER CREAM APPLIED AND DRIED. PILLOW CASE PLACED UNDER PANNUS FOR MOISTURE. TIFFANY ARE IS REDDENED AND ALLEVYN INTACT ALONG GLUTEAL FOLD. OSTOMY APPLIANCES ARE DRY AND INTACT. NG TUBE SUCTION TURNED OFF AND NGT REMOVED WITH CATH INTACT. PT. TOLERATED WELL. GIVEN SMALL SIPS OF WATER. LUNGS ARE COARSE AND SHE HAS A MOIST, WEAK COUGH. GIVEN I.S. AND EDUCATION. PT. DEMONSTRATED USE. PICC LUMENS FLUSHED AND HAVE BRISK BLOOD RETURN. PT. REPOSITIONED. BED ALARM ON AND CALL LIGHT IN REACH.
--- NOTE | 2022-02-13 09:45 | NUR ---
PT. ASSISTED WITH COMBING HAIR AND WAS USING I.S. ON HER OWN. DENIES FURTHER NEEDS.
--- NOTE | 2022-02-13 12:31 | NUR ---
PT. BRIEF CHANGED, DRIED, AND BARRIER CREAM APPLIED. PUREWICK PLACED PER PROTOCOL. PT. REPOSITIONED AND LEFT RESTING WITH CALL LIGHT IN REACH.
--- NOTE | 2022-02-13 16:15 | NUR ---
PUREWICK SUCTION TUBE FOUND DISCONNECTED WITH URINE ON THE FLOOR. FLOOR CLEANED TUBING REATTACHED. TPN AND LIPIDS VERIFIED BY 2 RNS AND INFUSING. PT. LEFT RESTING WITH CALL LIGHT IN REACH.
--- NOTE | 2022-02-13 19:27 | NUR ---
pt in bed, hob elevated, moist nonprod cough present, flat affect, forgetful. on clear liquids now, aspiration precautions in place. TPN infusing MATTY PICC line. call light and fluids at bedside. Bed alarm on
--- NOTE | 2022-02-13 20:30 | NUR ---
BED ALARMING, IN TO ASSIST. pt HAD RIGHT LEG OVER SIDE RAIL. ATTEMPTING TO STAND. pt UNWILLING TO FOLLOWING INSTRUCTION TO SAFELY MOVE, SECOND RN IN ROOM TO ASSIST. pt ABLE TO SIT AT SIDE OF BED. REQUESTED TO BE LEFT ALONE, EDUCATION DONE ON SAFETY. pt SEEMED CONFUSED ABOUT THE SITUATION AT TIMES, THOUGHT SHE COULD WALK BUT SHE REQUIRED ASSISTANCE TO SIT UP. pt'S RETURNED TO BEDSIDE. LEFT WITH pt FOR 5 MINUTES, AFTER WHICH AND THIS RN WERE ABLE TO ASSIST pt TO BED. REPOSITIONED IN BED. REQUESTED THAT HER BLOOD SUGAR BE CHECKED, DONE. EXPRESSED CONCERN OVER pt "LOOKS MORE PUFFY AND FLUSHED" AND THE AGITATION. PRIMARY RN UPDATED. BED ALARM ON. CALL LIGHT WITHIN REACH.
--- NOTE | 2022-02-13 21:20 | NUR ---
pt flat irritable affect, upset earlier on shift. clamer now, still flat affect, forgetful, more cooperative, repositioned, hob elevated, tolerating clear liquid, on 1000cc fluid restriction. TPN infusing MATTY PICC line. dry attends. edema generalized 1+ hands, and 2+ feet. elevated. medicated with dilaudid 1mg IV per generalized pain. in room
--- NOTE | 2022-02-13 21:21 | NUR ---
PT. VITALS AND I/OS CHARTED. ROOM TIDIED. TRASH EMPTIED. CALL LIGHT LEFT WITHIN REACH. NO OTHER IMMEDIATE NEEDS AT THIS TIME.
--- NOTE | 2022-02-13 22:36 | NUR ---
CALMER, MORE PLEASANT, HOB ELEVTED, TOLERATING SIPS OF CLEAR LIQUIDS. CALL LIGHT AT HENDS REACH, FAMILY IN ROOM
--- NOTE | 2022-02-14 01:41 | NUR ---
hob elevated to comofrt, resting, eyes closed, no ditress, TPN and lipids infusing. call light and clear fluids at bedside. rooming in
--- NOTE | 2022-02-14 03:08 | NUR ---
ON ROOM AIR, AWAKES EASILY, NO DISTRESS, COOPERATIVE. TOOK SIPS OF CLEAR FLUIDS. CBG 143, TPN/LIPIDS INFUSING W/O PROBLEMS. HELPED WITH REPOSITIONING. CALL LIGHT AT HANDS REACH
--- NOTE | 2022-02-14 05:00 | NUR ---
Pt awakes easily, incontinent of large amount of urine, complete bed and gown changed. cooperative, barrier cream applied to buttocks and between pannus. turns and repositions well. MATTY PICC line patent, lipids infusing. tolerating dips of fluids. no c/o pain. alert, cooperative. in room
--- NOTE | 2022-02-14 05:53 | NUR ---
Pt on room air, lungs dim at bases, moist cough present, hob elevated, aspiration precautions in place. on clear fluids 1000cc fluids restriction. on TPN/lipids. Tolerating flagyl abx and cerybex/keppra iv meds. was medicated with Dilaudid per generalized pain, effective.MATTY PICC line patent. redness under pannus, periarea, buttocks, barrier cream applied. Large abd with raised tender areas, hernia present around lower stoma, stoma draining scant amount of brown/yellow semiliquid bm. old alison draining area with drainage bag patent, draining greenish colored small amount of drainage. edema to ankles, elevated, heel protectors in place. Pt was very angry,irritable at begining of shift. calmed dowm after an hour into shift or so with intervantion in room.
--- NOTE | 2022-02-14 07:30 | NUR ---
Bedside report received from MONICA RN. Pt is awake resting in bed. at the bedside. Pt was noted to have some non-productive cough. Stated it was normal. Stoma and surgical sites examined. TPN infusing.
--- NOTE | 2022-02-14 11:55 | NUR ---
Pt was found with feet hanging out of bed. She stated she wanted to get up. When asked whether she wanted to sit in the recliner or use the restroom Pt didn't specify. Pt was made aware PT was here today. She wanted to see the therapist right away. PT was made aware.
--- NOTE | 2022-02-14 12:55 | NUR ---
Pt tolerated full liquid lunch. Ate 80%. No N/V.
--- NOTE | 2022-02-14 13:50 | NUR ---
Pt is grossly incontinent of urine. Pericare provided, moisture barrier cream applied afterwards.
--- NOTE | 2022-02-14 16:00 | NUR ---
New TPN started. Pt reports feeling better today. No N/V. Pericare provided. Linen changed. Pt denies pain/doscomfort.
--- NOTE | 2022-02-14 17:41 | NUR ---
Cholycystostomy output is 20 ml for the sfift (it's greenish). Colostomy output icreased as Pt is eating her full liquid diet (it's mustard colored) .
--- NOTE | 2022-02-14 19:41 | NUR ---
REPORT RECEIVED FROM DAY SHIFT RN. PT LYING IN BED LOOKING ON CELL PHONE. AGREES SHE IS COMFORTABLE. DENIES NEEDS. WHITE BOARD UPDATED. CALL LIGHT IN REACH. BED ALARM FOR SAFETY.
--- NOTE | 2022-02-14 21:43 | NUR ---
EVENING ASSESSMENT COMPLETE. SCHEDULED MEDS ADMINISTERED PER EMAR. HOB ELEVATED. NO SWALLOWING ISSUES NOTED. PT DENIES PAIN OR NAUSEA. PT INCONTINENT OF URINE. TIFFANY CARE DONE BY STAFF. TIFFANY AREA RED WITH OPEN AREAS UNDER PANNUS. BARRIER CREAM APPLIED AND PILLOW CASE USED IN SKIN FOLDS. CLEAN ATTENDS PLACED. 2PA TO REPOSITION IN BED. RIGHT ARM PICC PATENT WITH BRISK BLOOD RETURN NOTED IN BOTH LUMENS. TPN INFUSING PER ORDER. SECOND LUMEN HEP LOCK PER PROTOCOL. DRESSING INTACT. VS AND I&O COMPLETE. HEEL PROTECTORS IN PLACE. PT DENIES QUESTIONS OR CONCERNS. AT BEDSIDE. CALL LIGHT IN REACH. BED ALARM FOR SAFETY.
--- NOTE | 2022-02-15 00:36 | NUR ---
PT RESTING IN BED WITH EYES CLOSED. RESPIRATIONS EVEN. CALL LIGHT IN REACH. BED ALARM FOR SAFETY.
--- NOTE | 2022-02-15 02:04 | NUR ---
IN FOR BLOOD SUGAR CHECK. PT RESTING WITH EYES CLOSED. AWAKENS EASILY. INCONTINENT OF URINE. OSTOMY APPLIANCE LEAKING LARGE AMOUNT OF LIQUID YELLOWISH BROWN BM. OSTOMY APPLIANCE CHANGED. TIFFANY CARE DONE. CLEAN BRIEF AND LINENS PLACED. 2PA TO REPOSITION IN BED. WARM BLANKET PROVIDED. PT DENIES FURTHER NEEDS. CALL LIGHT IN REACH. BED ALARM FOR SAFETY.
--- NOTE | 2022-02-15 05:51 | NUR ---
MORNING LABS DRAWN FROM RIGHT PICC PER PROTOCOL. VS AND I&O COMPLETE. PT INCONTINENT OF URINE. STAFF ASSIST WITH TIFFANY CARE. CLEAN ATTENDS PLACED. 2PA TO REPOSITION IN BED. TPN INFUSING WNL. PT DENIES FURTHER NEEDS. CALL LIGHT IN REACH.
--- NOTE | 2022-02-15 07:19 | NUR ---
Bedside report received from MONICA RN. Pt is sleeping. RA. No signs of distress. is sleeping on a sofa.
--- NOTE | 2022-02-15 08:55 | NUR ---
CALL TO [facility], PER DR. CHAUDHARY, TO REMOVE PATIENT FROM TRANSFER LIST.
--- NOTE | 2022-02-15 09:49 | NUR ---
Pt tolerated her breakfast well. No N/V. No abdominal pain. Stoma is pink on inspection. No stool present at the moment. Cholycystostomy is WNL and has clear greenish drainage present. PICC line dressing is CDI. TPN infusing.
--- NOTE | 2022-02-15 11:27 | NUR ---
Pt just finished working with PT. She reported she felt slightly dizzy. Pt was advised to drink more water.
--- NOTE | 2022-02-15 14:00 | NUR ---
Pt ate 75% of lunch. She also is able to drink more water. She is resting in bed, supine. RA. TPN infusing. and daughter at the bedside.
--- NOTE | 2022-02-15 15:50 | NUR ---
Pure wick applied with positive results. Barrier cream applied to reddened skin (perineum). Colostomy changed as it was leaking. Pt repositioned in bed. Fell asleep afterwards.
--- NOTE | 2022-02-15 16:50 | NUR ---
TPNs verified with Myles RN. It is infusing at 83.8 ml. Filter applied.
--- NOTE | 2022-02-15 19:35 | NUR ---
REPORT RECEIVED FROM DAY SHIFT RN. PT LYING IN BED ALERT AND ORIENTED. DENIES NEEDS. WHITE BOARD UPDATED. CALL LIGHT IN REACH. BED ALARM FOR SAFETY. AT BEDSIDE.
--- NOTE | 2022-02-15 21:00 | NUR ---
EVENING ASSESSMENT COMPLETE. SCHEDULED MEDS ADMIN PER EMAR. PT REPORTS ABD/HEADACHE PAIN 04/08. ATTEMPTED TO ADMIN PRN TYLENOL PER REQUEST BUT AFTER TAKING CHRONIC MEDS PT DID NOT WANT TO SWALLOW TYLENOL STATING "IT'S TOO MUCH". WILL ATTEMPT AT A LATER TIME. PT DENIES NAUSEA. PT WITH EXTERNAL CATHETER IN PLACE. OSTOMY PATENT WITH SCANT AMOUNT SOFT STOOL. OSTOMY ON RUQ WITH SCANT AMOUNT LIGHT GREEN DRAINAGE. BOWEL TONES ACTIVE. ABD SOFT. PICC LINE IN RIGHT UPPER ARM FLUSHED WITH NS. BLOOD RETURN NOTED. TPN INFUSING PER ORDER. DRESSING INTACT. 2PA TO REPOSITION IN BED. HOB ELEVATED. PT DENIES FURTHER NEEDS. IN ROOM. CALL LIGHT IN REACH. BED ALARM FOR SAFETY.
--- NOTE | 2022-02-15 23:40 | NUR ---
PT RESTING WITH EYES CLOSED. RESPIRATIONS EVEN. SpO2 98% ON RA. HR 60'S. CALL LIGHT IN REACH. BED ALARM FOR SAFETY.
--- NOTE | 2022-02-16 02:09 | NUR ---
ASSISTED BUNNY CASE. BLOOD SUGAR CHECK DONE. CHANGED ATTENDS SOAKED WITH URINE. PATIENT BOOSTED UP IN BED. BED ALARM ON FOR SAFETY. IS SLEEPING IN THE COUCH.
--- NOTE | 2022-02-16 02:23 | NUR ---
PT RESTING WITH EYES CLOSED. AWAKENS EASILY. CONFUSED AND IRRITABLE ABOUT BEING AWAKENED FOR CARES. REORIENTATION PROVIDED. PT RECEPTIVE. BLOOD SUGAR CHECK 179. SLIDING SCALE INSULIN GIVEN. PUREWICK NOT PATENT. PT INCONTINT OF URINE. TIFFANY CARE DONE. CLEAN BRIEF PLACED. NEW PUREWICK DEVICE PLACED. PT ABLE TO PARTICIPATE IN CARES. PT AGREEABLE TO TAKE PRN TYLENOL AT THIS TIME. SIPS OF WATER PROVIDED. RESTING ON COUCH. NO FURTHER NEEDS. CALL LIGHT IN REACH. BED ALARM FOR SAFETY.
--- NOTE | 2022-02-16 06:00 | NUR ---
VS AND I&O COMPLETE. MORNING LABS DRAWN FROM RIGHT PICC PER PROTOCOL. ASSISTED PT TO REPOSITION IN BED. COFFEE PROVIDED FOR PT AND . NO FURTHER NEEDS.
--- NOTE | 2022-02-16 07:28 | NUR ---
bedside report from robert rn, dr. stein in room - pt present. plan to wean tpn off today. improving - call light in reach.
--- NOTE | 2022-02-16 09:09 | NUR ---
CALL TO DR CHAUDHARY TO DC SQ VIT. K NEW ORDER IN.
--- NOTE | 2022-02-16 09:30 | NUR ---
PATIENT REMAINS ON TPN WHICH SHOULD BE WEANING TODAY. SHE IS ON A FULL LIQUID DIET. HER A1C WAS ONLY 5.2%, SO A REGULAR DIET WOULD BE FINE UNLESS HER BLOOD SUGARS ARE ELEVATED ONCE TPN IS D/C'D. WILL CONTINUE TO MONITOR.
--- NOTE | 2022-02-16 11:42 | NUR ---
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
--- NOTE | 2022-02-16 14:25 | NUR ---
called pharmacy for desenex powder.
--- NOTE | 2022-02-16 16:09 | NUR ---
called pharmacy and charger operator helper to discuss accucheck times and dc of tpn at 14:30 change accuchecks to achs/prn
--- NOTE | 2022-02-16 16:17 | NUR ---
PT CONCERNED ABOUT PT AND PT NOT SUCCESSFUL. PT STOOD UP THEN LEGS GAVE OUT PER ESTERS REPORT AND PT BACK TO THE BED - REPOSITIONED WITH EVAN FOR SAFETY.
--- NOTE | 2022-02-16 17:37 | NUR ---
2 PERSON RN ASSIST TO BOOST PT IN BED, WAS SLEEPING COMFORTABLY WITH LEG OUT OF BED. REPOSITIONED HOB UP FOR MEAL.
--- NOTE | 2022-02-16 19:30 | NUR ---
REPORT RECEIVED FROM DAY SHIFT RN. PT LYING IN BED AWAKE. INCONTINENT OF URINE. LINENS CHANGED. TIFFANY CARE DONE. 2PA TO REPOSITION IN BED. DENIES FURTHER NEEDS. WHITE BOARD UPDATED. CALL LIGHT IN REACH. BED ALARM FOR SAFETY.
--- NOTE | 2022-02-16 22:00 | NUR ---
EVENING ASSESSMENT COMPLETE. SCHEDULED MEDS ADMIN PER EMAR. PT DENIES PAIN OR NAUSEA. INCONTINENT OF URINE. 2PA TO CHANGE ATTENDS. TIFFANY CARE DONE AND POWDER PLACED IN SKIN FOLDS. VS AND I&O COMPLETE. OSTOMY WITH 50 ML YELLOW BROWN SOFT STOOL. 2PA TO REPOSITION IN BED WITH PILLOWS. PICC IN RIGHT ARM HEP LOCKED PER PROTOCOL. DRESSING INTACT. RESTING ON COUCH. PT DENIES FURTHER NEEDS. CALL LIGHT IN REACH.
--- NOTE | 2022-02-17 00:49 | NUR ---
PT RESTING IN BED WITH EYES CLOSED. RESPIRATIONS EVEN. CALL LIGHT IN REACH. BED ALARM FOR SAFETY.
--- NOTE | 2022-02-17 03:33 | NUR ---
PT RESTING WITH EYES CLOSED. SpO2 MID 90'S. HR 60'S. RESPIRATIONS EVEN. CALL LIGHT IN REACH.
--- NOTE | 2022-02-17 06:40 | NUR ---
CHANGED THE WHOLE BED LINEN. 2 PA. SANDI HUTCHINS AND THIS PUBLIC ADDRESS SYSTEM INSTALLER. CHANGED NEW PUREWICK AND CONNECT TO ON WALL SUCTION. WARM BLANKET PROVIDED. COFFEE PROVIDED. IS IN THE ROOM.
--- NOTE | 2022-02-17 07:30 | NUR ---
Called and Spoke with [facility] medical transport. They do not accept medicare and are private pay. Quote is $10,830 dollars for transport to [place], [place]. Called and spoke with Marleni and ROBERT. They do tranpsort out of state. Updated pt does have [employer] and also I believe Medicare will cover as pt is not able to transport any other way. She is unsafe to walk and family are unable to handle pt with her medical decline. SBO has resolved, but other complex medical problems have not. Pt is unable to be treated at [facility] due to her complex medical status and needs to be seen at a higher level of care. It is unfortunate due to pts weight and covid her treatments have been pushed back and now she is very complex. Marleni states she will discuss with her Captain and let me know. I faxed her notes from Dr. Sims, Dr. Stephens and Dr. Brown showing complexity of this case and need to return home to [place].
--- NOTE | 2022-02-17 10:00 | NUR ---
Spoke with pts spouse, Gab. Updated I have faxed chart to [facility] to see about transport. Let him know this may not happen, but we are checking. Gab would prefer this as he states is not able to stand or pivot transfer. She was able to do all these things when she left [place]. He states he cannot livery car driver her to home without stopping, but he would not be able to get her in or out of the car. He states he cannot transport her. Let him know, I will update him as soon as I hear from [facility] as it is being reviewed by their management. I also asked if he plans on taking pt to a hospital or a facility when they get home. He states he has not thought that far ahead.
--- NOTE | 2022-02-17 11:14 | NUR ---
Patient awake, alert to self and place. Patient is on room air, respirations non labored. Patient denies pain at this time. No current needs. Call light within reach.
--- NOTE | 2022-02-17 13:24 | NUR ---
assumed care - pt call light in reach.
--- NOTE | 2022-02-17 16:15 | NUR ---
Called and spoke with Marleni at [facility]. She states they have not made a decision, but are not saying no at this point. They will let me know tomorrow.
--- NOTE | 2022-02-17 16:20 | NUR ---
Received call from Marleni at [facility]. She states they have agreed to take this pt tonight as they have a crew available. They would like to leave in 1 hour. Let her know I don't think I can have the pt ready that quick. I need to call the spouse and also get a dc order from Dr. Stephens. He is in clinic and seeing pts. She asked when pt could be ready and I requested 1830. Crew will be here then. Called and spoke with spouse and he states they cannot go tonight. He has not slept. Discussed it is rare that the crew would agree to such a long transport and it is an off duty. He asks I call and ask if they can take the pt tomorrow. Called and spoke with Marleni and she states per the Captain, they cannot guarantee a transport for tomorrow. They have a crew today. Called Gab and updated. He states doesn't know what to do. He asks what I would do and I told him I would go with the ambulance and have my adult daughter drive the car home. He states she cannot drive that far. I then said I would have my daughter ride in the ambulance. I discussed with him our conversation from this morning where he stated he cannot transport his as she is medically complex and he cannot lift her and she cannot stand, walk, or transfer. He states he needs more time to make a decision. Encouraged him to discuss with family and I will call and speak with Dr. Stephens for dc orders. Called Dr. Stephens and he is seeing his last patient and will write orders. He states if they have transport they need to go tonight. Pt. is not medically stable to transport in a car. Updated staff feel pt will need an ativan for the trip, just in case she becomes anxious. He will complete orders.
--- NOTE | 2022-02-17 17:15 | NUR ---
Called spouse and he states they will go tonight. Daughter will ride with pt. He states daughter has anxiety and is crying but will go with the pt. I asked if he has any other family to ride with pt. He states this is the best plan. Called the ambulance crew and they will be here at 1830 for transport to [place], [place].
--- NOTE | 2022-02-17 17:38 | NUR ---
pt up in chair - weak, tavon lift to bed, pt inc. of urine, ostomy intact, r side gb fistula bag intact. pt cleaned, fresh linen, dc neighborhood planner with pt for dc plan to home via ambulance.
[2022-02-17] MEDS ORDERED: LORAZEPAM1 MG PO (18:07)
--- NOTE | 2022-02-17 18:10 | NUR ---
dc inventory planner and pharmacy consulting about dc meds po ativan with . leave parks cath and picc line r arm in for transfer to home via ambulance. insturcted to take to pcp for evaluation of dc/ parks and picc as soon as they are back to [place] home.
--- NOTE | 2022-02-17 18:30 | NUR ---
DR CHAUDHARY CALLED WITH VERBAL ORDERS FOR PO ATIVAN TO SEND WITH EMS, TO PLACE A ZEPEDA PRIOR TO DC AND TO LEAVE PICC LINE IN WITH INSTRUCTIONS FOR PRIMARY CARE PROVIDER TO TAKE OUT AT EARLIEST APPOINTMENT. ALL ORDERS PLACED IN COMPUTER AND PRIMARY RN NOTIFIED.
--- NOTE | 2022-02-17 18:40 | NUR ---
Ambulance crew here to transport pt and daughter.
--- NOTE | 2022-02-17 19:16 | NUR ---
ZEPEDA PLACED FOR INC. AND POOR SKIN TURGUR AND SKIN RED AND OBESE SKIN FOLDS - TRANFER TO [place] VIA AMBULANCE AND PLACEMENT FOR LONG RIDE IN AMBULANCE. R PICC LINE ALSO IN PLACE BOTH PER ORDERS AND VERBAL FROM DC ROLL SHOP SUPERVISOR AND DIRECTOR [employer]ENC[employer] STRATEGIC [employer]NERSHIPS.
--- NOTE | 2022-02-18 09:20 | DS ---
[facility] [address], [place] [address] Signed ADMISSION DATE: 02/10/2022 DISCHARGE DATE: 02/17/2022 FINAL DIAGNOSES: 1. Small bowel obstruction associated with large incarcerated parastomal hernia. 2. Chronic gallbladder fistula. 3. Chronic kidney stones with chronic left ureteral stent. PROCEDURES: 1. CT scan of abdomen and pelvis. 2. Small bowel follow-through. HISTORY OF PRESENT ILLNESS: Heide is a 66-year-old obese female, who actually lives 1.[address] hour [facility]. Her , daughter, and grand children have brought her up to [place], [place] to visit with family. Apparently at one time, she weighed over 400 pounds. She is now down to somewhere over 200 pounds. At one point, she developed an incarcerated paraumbilical hernia requiring emergent surgery. At that time, part of the colon was resected and she was given a colostomy. She had a bad gallbladder at the same time and that was percutaneously drained. The drain was removed and she now has a chronic fistula, which is controlled with a colostomy bag. She also has rather significant kidney stones particularly on the left side. She has a left ureteral stent that has been left in place. She is chronically colonized. While here in [place], she developed small bowel obstruction associated with the hernia. Her attributes this to the terrible food they were eating on the way up from [place]. She had come to our local emergency room for evaluation. HOSPITAL COURSE: Heide was seen in the emergency room and I was asked to admit her in the middle of the night. She has been treated conservatively with the NG tube and initially some IV antibiotics. It has been rather challenging to track down her records in [place]. Her is a moderate historian. We discovered in the morning that she had these other 2 rather significant chronic issues. In addition, her functional status at baseline is quite low. The assures me that she could transfer out of bed and ambulate 20 continuous steps with the walker in the house. Unfortunately, she has not been able to do that here even with the help of our physical therapist. She has been at least a two person assist and even required a Tonio lift to get her back in the bed. Thankfully, she has resolved a small bowel obstruction and she is now on a full liquid diet. However, we have had to work with Case Management in order to find a way to transfer her back down to [place] to her home and to be closer to her physicians in that area. Because of her inability to stand and ambulate and transfer and so forth, Electronically Signed By: FRANCISCO STEPHENS MD 02/18/22 0920 PATIENT NAME: HEIDE KAY DISCHARGE SUMMARY DATE OF : 55 REPORT #: [id number] PHYSICIAN: FRANCISCO STEPHENS MD PCP: NO PRIMARY CARE PHYSICIAN REPORT IS CONFIDENTIAL AND NOT TO BE RELEASED WITHOUT AUTHORIZATION [address] [address] Signed the family simply cannot take her by private vehicle. Arrangements have been made that our local ambulance service to take her back down to [place]. They prefer to do that throughout the night as the traffic is much better. Given that they were hoping that she could go the night, she certainly is welcome to do that. DISCHARGE PLANS AND MEDICATIONS: Heide is going to continue a full liquid diet, which is just about her baseline. She is already back on her chronic medications and she will simply continue those at home. Her is quite facile with the colostomy care. When she reaches [place], she is to contact her primary care provider the next day to have her Johnson catheter removed. She needs to discuss with the primary care provider if there is going to be any plans whatsoever to address these 3 chronic issues. She is very deconditioned and she represents an increased surgical risk for sure. I have reviewed that with Heide and her each and every day. They have expressed understanding and agreed with the above plan. Francisco Stephens MD ALB/MODL /[id number] cc: Francisco Stephens MD Copies: FRANCISCO STEPHENS MD ~ Electronically Signed By: FRANCISCO STEPHENS MD 02/18/22 0920 PATIENT NAME: HEIDE KAY DISCHARGE SUMMARY DATE OF : 55 REPORT #: [id number] PHYSICIAN: FRANCISCO STEPHENS MD PCP: NO PRIMARY CARE PHYSICIAN REPORT IS CONFIDENTIAL AND NOT TO BE RELEASED WITHOUT AUTHORIZATION
== END 2022-02-17 18:50 | disposition home or self-care (01) | DRG 394 ==
LOC: ED 18:08 → MS 18:09
PROVIDERS: ADMIT Colon & Rectal Surgery; ATTEND Colon & Rectal Surgery
DX: K43.3 Parastomal hernia with obstruction, without gangrene (principal); K82.3 Fistula of gallbladder; N20.0 Calculus of kidney; Z96.0 Presence of urogenital implants; Z93.3 Colostomy status; Z88.2 Allergy status to sulfonamides; Z88.0 Allergy status to penicillin; Z88.8 Allergy status to other drugs, medicaments and biological substances; Z79.02 Long term (current) use of antithrombotics/antiplatelets; Z79.899 Other long term (current) drug therapy; Z88.1 Allergy status to other antibiotic agents; E11.9 Type 2 diabetes mellitus without complications; E88.09 Other disorders of plasma-protein metabolism, not elsewhere classified; G40.909 Epilepsy, unspecified, not intractable, without status epilepticus; E78.5 Hyperlipidemia, unspecified; E83.42 Hypomagnesemia; E66.01 Morbid (severe) obesity due to excess calories; Z68.39 Body mass index [BMI] 39.0-39.9, adult
CPT/HCPCS: 36415; 36569; 71045; 74177; 74250; 80048; 80053; 80061; 81001; 83036; 83735; 84100; 84134; 85025; 85610; 85730; 86140; 87088; 87186; 87502; 93005; 93010; 96361; 96366; 96375; 97163; 97530; 99285-25; A9270; A9270-GY; C1751; C9113; G0378; J1170; J1650; J1815; J1953; J1956; J2060; J2270; J2405; J3475; J3480; J7030; J7060; J7121; Q2009; Q9967; U0003